=== PATIENT | female | born 1985 | race Caucasian/White ===

== ENCOUNTER → 2016-11-15 | Outpatient (CLI) | payer BC ==
[~2016-11-15] MED LIST: CIPRO 500MG TA500 MG PO; FLEXERIL 1010 MG/TAB PO; NORCO 325 MG-51 TAB PO; ORTHO-CYCLEN 351 TAB; VOLTAREN 75 DR75 MG PO
== END ==
LOC: COL.RAD 14:56
DX: D44.0 Neoplasm of uncertain behavior of thyroid gland (principal)

== ENCOUNTER 2017-01-08 11:23 | Emergency (ER) | payer OTHER, BC ==
[~2017-01-08] VITALS: Ht 175.3 cm; Wt 72.7 kg
[2017-01-08 11:27] VITALS: TEMP 98.4
[2017-01-08] MEDS ORDERED: ORTHO-CYCLEN 351 TAB (11:30)
[2017-01-08 12:25] LABS: BASO % 0.4 % (0.0-2.0); EOS % 0.4 % (0-4.0); GRAN # 6.6 (1.4-6.5); GRAN % 72.7 % (42.2-75.2); HEMATOCRIT 37.7 % (37.0-47.0); HEMOGLOBIN 12.2 g/dl (12.5-16.0); LYMPH % 11.1 % (20.0-51.0); MEAN CELL VOLUME 83 fl (80.0-100.0); MEAN CORPUSCULAR HEMOGLOBIN 27 pg (27.0-31.0); MEAN CORPUSCULAR HGB CONC 32 g/dl (33.0-37.0); MEAN PLATELET VOLUME 9.7 fl (7.4-10.4); MONO # 1.4 (0.1-0.6); PLATELET COUNT 317 K/mm3 (130-400); RED BLOOD COUNT 4.52 M/mm3 (4.10-5.30); REDCELL DISTRIBUTION WIDTH-CV 13.9 % (11.5-14.5); WHITE BLOOD COUNT 9.1 K/mm3 (4.8-10.8)
[2017-01-08 12:45] LABS: ADJUSTED CALCIUM 8.8 mg/dL (8.4-10.2); ALBUMIN 4.2 gm/dL (3.5-5.0); BILIRUBIN,TOTAL 0.6 mg/dL (0.0-1.0); CREATININE, serum 0.62 mg/dL (0.52-1.25); POTASSIUM 3.8 mmol/L (3.4-5.0); TOTAL PROTEIN 7.4 gm/dL (6.4-8.2)
[2017-01-08 12:58] LABS: PH 6 (5-8); SQUAMOUS EPITHELIAL 0-2 /hpf; URINE APPEARANCE Hazy; URINE BACTERIA None Seen /hpf; URINE BILIRUBIN Negative (NEGATIVE); URINE BLOOD Negative (NEGATIVE); URINE COLOR Yellow; URINE GLUCOSE Negative (NEGATIVE); URINE KETONE Negative (NEGATIVE); URINE RBC 0-2 /hpf; URINE UROBILINOGEN Negative (NEGATIVE)
[2017-01-08] MEDS ORDERED: CIPRO 500MG TA500 MG PO (14:24)
[2017-01-08] MEDS ORDERED: FLEXERIL 1010 MG/TAB PO (14:24)
[2017-01-08] MEDS ORDERED: VOLTAREN 75 DR75 MG PO (14:24)
[2017-01-08] MEDS ORDERED: NORCO 325 MG-51 TAB PO (14:24)
[2017-01-08 14:48] VITALS: BP 117/71; PULSE 69
== END 2017-01-08 14:48 | disposition home or self-care (01) ==
LOC: COL.ER 11:23
PROVIDERS: Emergency Medicine
DX: S38.1XXA Crushing injury of abdomen, lower back, and pelvis, initial encounter (principal); S30.0XXA Contusion of lower back and pelvis, initial encounter; S30.810A Abrasion of lower back and pelvis, initial encounter; S70.312A Abrasion, left thigh, initial encounter; S70.12XA Contusion of left thigh, initial encounter; S70.11XA Contusion of right thigh, initial encounter; W22.8XXA Striking against or struck by other objects, initial encounter; Y92.512 Supermarket, store or market as the place of occurrence of the external cause; Z23 Encounter for immunization
CPT/HCPCS: J2765; J3010; J7030; Q9967